=== PATIENT | female | born 1970 | race African-American/Black ===

== ENCOUNTER 2017-01-16 13:36 | Inpatient (IN) | payer OTHER ==
--- NOTE | ~2017-01-16 | CR141 ---
[facility] A Service of [facility] RADIOLOGY TEXT RESULTS PATIENT: CHANDA CRISTOBAL LOCATION: [place] : 70 UNIT #: [id number] AGE: [address]: Shey Danielson APRN SEX: F ORDER DR: [id number] [facility] [address] [facility]. [place], [place] [address] [id number] E MR#: [id number] Acc #: [id number] NAME: CHANDA CRISTOBAL. : 1970 SEX: F STUDY DATE/TIME: 01/16/2017 12:58 UNIT: [facility] ROOM: STUDY DESCRIPTION: CR Hand Min 3 Views Lt Attending Physician: Shey Danielson A.P.R.N. Ordering Physician: [facility] Primary Care Physician: Charity Miner M.D. MEDICAL IMAGING REPORT This report is preliminary unless electronic signature is present EXAM Left hand 3 views HISTORY Pain in left hand for several months but worse over last 2 weeks FINDINGS 3 views left hand demonstrates no fracture or dislocation. Minimal arthritic changes at the scaphotrapezial joint and first CMC joint. Bone mineralization appears normal. Soft tissues unremarkable. IMPRESSION No acute abnormalities. Minimal arthritic changes scaphotrapezial joint and first CMC joint. Dictated by... Sloane Gomez M.D. THIS IS AN ELECTRONICALLY VERIFIED REPORT Sloane Gomez M.D. at 01/17/2017 7:33 AM LUI/hector TD: 01/16/2017 13:55 JOB #: [id number] MEDICAL IMAGING REPORT Page 1 of 1 COPY
--- NOTE | ~2017-01-16 | CR281 ---
[facility] A Service of [facility] & [facility] RADIOLOGY TEXT RESULTS PATIENT: CHANDA CRISTOBAL LOCATION: [facility] : 70 UNIT #: [id number] AGE: [address]: Shey Danielson APRN SEX: F ORDER DR: [id number] [facility] [address] [facility]. [place], [place] [address] [id number] E MR#: [id number] Acc #: [id number] NAME: CHANDA CRISTOBAL. : 1970 SEX: F STUDY DATE/TIME: 01/16/2017 12:59 UNIT: [facility] ROOM: STUDY DESCRIPTION: CR Wrist Min 3 View Lt Attending Physician: Shey Danielson A.P.R.N. Ordering Physician: [facility] [employer] Primary Care Physician: Charity Miner M.D. MEDICAL IMAGING REPORT This report is preliminary unless electronic signature is present EXAM Left wrist 3 views HISTORY Wrist beginning several months ago, worse on the last 2 weeks FINDINGS 3 views of the left wrist demonstrates no fracture or dislocation. Questionable mild degenerative changes first CMC joint. Soft tissues unremarkable. IMPRESSION No acute findings Dictated by... Sloane Gomez M.D. THIS IS AN ELECTRONICALLY VERIFIED REPORT Sloane Gomez M.D. at 01/17/2017 7:33 AM Gabby TD: 01/16/2017 13:57 JOB #: [id number] MEDICAL IMAGING REPORT Page 1 of 1 COPY
--- NOTE | ~2017-01-16 | HP ---
Unit #: [id number] #: [id number] Patient: CHANDA CRISTOBAL [id number] [place], [place] [address] [id number] I MR#: [id number] NAME: CHANDA CRISTOBAL. ROOM: [facility] Age: 46 Sex: F Admission Date: 01/17/2017 : 1970 Attending Physician: Charity Miner M.D. Primary Care Physician: Charity Miner M.D. HISTORY AND PHYSICAL ADMISSION DIAGNOSES 1. Accelerated hypertension. 2. Morbid obesity. 3. Diabetes. 4. Leukocytosis. HISTORY OF PRESENT ILLNESS Ms. Chanda Cristobal is a 46-year-old female, patient of Dr. Miner who was a direct admit after seen at Dr. Miner's office for the routine followup for her pain medicine refill when she was found with the accelerated hypertension with systolic of greater than 220. She was admitted. She currently has no complaints. Her last blood pressure taken manually was 190/124, heart rate in the 80s, respirations 18, temperature 97.8. She has again no complaints. No chest pain, no headache, no dizziness, no nausea or vomiting, no diarrhea. Her kidney function looks fine with BUN 8 and creatinine 0.7. The only abnormality on her lab work is leukocytosis of 12,000. She has no syncope or presyncope episodes and no dizziness. REVIEW OF SYSTEMS Twelve-point review of systems on this patient is basically negative except as above. PAST MEDICAL HISTORY Significant for: 1. History of hypertension. 2. Diabetes type 2. She takes metformin. PAST SURGICAL HISTORY None. HOME MEDICATIONS I do not have these in front of me but this will require to be clarified with the pharmacy and patient will be restarted accordingly. ALLERGIES No known drug allergies. SOCIAL HISTORY Denies any tobacco, alcohol, or illicit drugs. FAMILY HISTORY Unremarkable. Unit #: [id number] #: [id number] Patient: CHANDA CRISTOBAL PHYSICAL EXAMINATION VITAL SIGNS: BP 190/124, heart rate 82, respirations 18, temperature 97.8. GENERAL: The patient is a 46-year-old female in no acute distress. HEENT: Head is atraumatic. Pupils equal, round, reactive to light and accommodation. Extraocular muscles are intact. Oropharynx is clear. NECK: Supple. No mass, no JVD, no bruits. LUNGS: Clear to auscultation bilaterally with diminished sounds in the bases. HEART: S1, S2. No murmurs. ABDOMEN: Obese, soft, nontender, nondistended. Bowel sounds are diminished. LOWER EXTREMITIES: Without any significant swelling. There are some venous stasis changes. NEUROLOGIC: Patient grossly intact to focal deficits. DIAGNOSTIC STUDIES LABORATORY: As above in HPI. IMAGING: As above in HPI. ASSESSMENT AND PLAN 1. For hypertension, will start her on IV hydralazine 20 mg q.6 h. p.r.n. for systolic blood pressure greater than 170. Also will start on clonidine 0.1 mg p.o. b.i.d. Will check 2D echo. Also, will go ahead and get a chest x-ray to rule out any mediastinal widening or aortic dissection. But, again, patient does not have any chest pain. Patient does not have any signs of end-organ damage. So at this point, it will be treated as an accelerated hypertension with medications as above. Will consider a cardiology evaluation. 2. Morbid obesity. Counseled on importance of losing some weight. 3. Diabetes. Will hold metformin. Check hemoglobin A1c. 4. Leukocytosis. Will check procalcitonin level, will check UA. 5. Chronic pain. Continue home medications. 6. GI and DVT prophylaxis start on Protonix, continue SCDs. Dictated by Myron Barone M.D. OC/stu TD: 01/17/2017 20:50 JOB #: [id number] Unit #: [id number] #: [id number] Patient: CHANDA CRISTOBAL HISTORY AND PHYSICAL Page 1 of 1 X Myron Barone MD HISTORY AND PHYSICAL
--- NOTE | ~2017-01-16 | CR282 ---
[facility] A Service of [facility] & [facility] RADIOLOGY TEXT RESULTS PATIENT: CHANDA CRISTOBAL LOCATION: [facility] : 70 UNIT #: [id number] AGE: [address]: Shey Danielson APRN SEX: F ORDER DR: [id number] [facility] [address] [facility]. [place], [place] [address] [id number] E MR#: [id number] Acc #: [id number] NAME: CHANDA CRISTOBAL. : 1970 SEX: F STUDY DATE/TIME: 01/16/2017 UNIT: [facility] ROOM: STUDY DESCRIPTION: CR Wrist Min 3 View Rt Attending Physician: Shey Danielson A.P.R.N. Ordering Physician: [facility] Primary Care Physician: Charity Miner M.D. MEDICAL IMAGING REPORT This report is preliminary unless electronic signature is present EXAM Right wrist 3 views 01/16/2017 12:37 hours FINDINGS 46-year-old woman complaining of wrist pain. Pain for a few months with significant increasing pain over the past 2 weeks. No acute injury. FINDINGS AP, lateral and oblique views demonstrate no fracture, dislocation or degenerative change. IMPRESSION Negative right wrist. Dictated by... Анна Buenrostro M.D. THIS IS AN ELECTRONICALLY VERIFIED REPORT Анна Buenrostro M.D. at 01/16/2017 2:32 PM M/hector TD: 01/16/2017 13:38 JOB #: [id number] MEDICAL IMAGING REPORT Page 1 of 1 COPY
--- NOTE | ~2017-01-16 | CR132 ---
[facility] A Service of [facility] & [facility] RADIOLOGY TEXT RESULTS PATIENT: CHANDA CRISTOBAL LOCATION: A 330-01 : 70 UNIT #: [id number] AGE: [address]: Charity Miner MD SEX: F ORDER DR: [id number] [facility] [address] [place], [place] [address] [id number] E MR#: [id number] Acc #: [id number] NAME: CHANDA CRISTOBAL. : 1970 SEX: F STUDY DATE/TIME: 01/16/2017 13:01 UNIT: [facility] ROOM: STUDY DESCRIPTION: CR Forearm 2 View Lt Attending Physician: Shey Danielson A.P.R.N. Ordering Physician: Ed Doctor [id number] [facility] Primary Care Physician: Charity Miner M.D. MEDICAL IMAGING REPORT This report is preliminary unless electronic signature is present EXAM Left forearm series, 01/16/2017 HISTORY Pain a few months ago but pain worse in last 2 weeks. No known trauma. FINDINGS AP and lateral radiographs of the left forearm are presented. No traumatic fracture or malalignment. The elbow and wrist joints appear intact in their visualized extent. No soft tissue defect or subcutaneous air. On the lateral view there is a 2.0-3.0 mm radiodensity projecting over the soft tissues of the left thenar eminence. It is not seen on the frontal view however this area is not included on the frontal view. It is unclear if this represents radiodense foreign body in the subcutaneous soft tissues or radiographic cassette artifact. Correlate with any penetrating trauma to this region. Correlate with exam. Dictated by... Calderon Aguilar M.D. THIS IS AN ELECTRONICALLY VERIFIED REPORT Calderon Aguilar M.D. at 01/17/2017 6:26 PM Karrie TD: 01/16/2017 14:13 JOB #: [id number] MEDICAL IMAGING REPORT Page 1 of 1 COPY
--- NOTE | ~2017-01-16 | BMI ---
[facility] Nutrition Therapy DATE: 01/18/17 Patient: CHANDA CRISTOBAL Physician: SHANIQUE Address: [address] [place] [address] Room/Bed: [address] [place] [address], Zip: [place] [address] Admit Date: 01/17/17 Date of : [birth year] Height: 5 3 Weight: 260 118 HIGH BMI NOTE: ANTHROPOMETRICS: HT: 63" WT: 118 KG BMI: 46.1 INTERVENTION: 1. HEART HEALTHY DIET RECOMMENDATIONS: 1. CONTINUE CURRENT DIET IN ORDER TO PROMOTE GRADUAL WEIGHT LOSS TOWARDS A HEALTHY BMI RANGE. Respectfully, YURY GIRARD RD, LD Food and Nutritional Services [facility] cc: client file
--- NOTE | ~2017-01-16 | DS ---
Unit #: [id number] #: [id number] Patient: CHANDA CRISTOBAL [id number] [address] [address] [id number] I MR#: [id number] NAME: CHANDA CRISTOBAL. ROOM: 330 Age: 46 Sex: F Admission Date: 01/17/2017 : 1970 Discharge Date: 01/19/2017 Attending Physician: Charity Miner M.D. Primary Care Physician: Charity Miner M.D. DISCHARGE SUMMARY FINAL DIAGNOSES 1. Accelerated hypertension. 2. Urinary tract infection. 3. Intractable back pain. 4. Diabetes mellitus type 2, uncontrolled with hemoglobin A1c above 10. 5. Leukocytosis, most likely secondary to urinary tract infection. DISCHARGE MEDICATIONS 1. Cipro 500 mg p.o. b.i.d. for five days. 2. Metformin 1000 mg p.o. b.i.d. 3. Norvasc 10 mg p.o. daily. 4. Lopressor 50 mg p.o. twice a day. 5. Hydrochlorothiazide 25 mg p.o. daily. 6. Clonidine 0.1 mg p.o. t.i.d. 7. Hydralazine 50 mg p.o. three times a day. 8. Oxycodone 7.5/325 one tablet p.o. q.8 p.r.n. dispense [address] Myron Barone. DISCHARGING PHYSICIAN Dr. Miner. DIAGNOSTIC STUDIES LABORATORY: Lab workup on discharge: Hemoglobin A1c 10.7. Urinalysis shows 3+ bacteria. BMP: Sodium 137, potassium 4, chloride 100, BUN 11, creatinine 0.7, calcium 9.6. Procalcitonin level less than 0.05. CBC shows WBC 11.1, hemoglobin 11.4, hematocrit 36.3, platelet count 431,000. On admission, patient's WBC count was 12.4. IMAGING: Chest x-ray, PA and lateral, was done which shows stable, mild cardiac enlargement. CARDIOVASCULAR: Echocardiogram was done during hospitalization which shows ejection fraction of 50% to 55%, moderate concentric left ventricular hypertrophy, no regional wall motion abnormalities noted, mildly dilated right ventricle. No significant valvular heart disease. Small pericardial effusion versus fat tissue. HOSPITAL COURSE Ms. Chanda Cristobal is a 46-year-old -[place] female with multiple medical problems, was admitted from office because of uncontrolled and accelerated hypertension. Patient's blood pressure on admission was 197/121 and 201/126. The patient was started on clonidine and hydralazine Unit #: [id number] #: [id number] Patient: LEVAR,CHANDA D and hydrochlorothiazide on top of her original medications which were Norvasc and metoprolol. The patient is doing much, much better at this time. Blood pressure has much improved, is under good control. Patient has been instructed that she needs to be compliant with the medication. It seems like there is some noncompliance issues going on. Patient's blood sugar is totally out of control. She refused to take insulin during hospitalization. I have explained it to her that her diabetes needs to get better. She is on metformin 1000 mg p.o. b.i.d. Diet instruction has been advised. The patient will follow up with us in the office in one week. At that time, will see if we need to start her on Victoza or insulin. There has to be some addition of another medication for her diabetic control. This was discussed with patient but will start as outpatient setting. Patient did have leukocytosis, most likely has urinary tract infection. First urine culture grew mixed growth. The second culture is still pending. The patient is being started on Cipro 500 mg b.i.d. for five days. CBC needs to be done in one week to make sure that her leukocytosis has resolved. PHYSICAL EXAMINATION VITAL SIGNS: Vital signs on discharge: Blood pressure 116/62, respiratory rate 20, pulse 74, temperature 98, oxygen saturation 100%. HEENT: Head is normocephalic. CHEST: Fair air entry. No additional sounds. CARDIOVASCULAR: S1, S2 positive. Regular rhythm. ABDOMEN: Soft. DISCHARGE INSTRUCTIONS 1. The patient is being discharged home in stable condition. 2. Follow up primary care physician in one week. 3. Check blood sugar at home twice a day and bring the log to us. 4. Complete the course of antibiotics. 5. CBC to be one in one week. 6. Prescription had been written (1) medication. Patient has been encouraged to bring medication with her when she comes for followup visit. Dictated by... Henri Betancourt TD: 01/20/2017 16:13 JOB #: [id number] Unit #: [id number] #: [id number] Patient: CHANDA CRISTOBAL DISCHARGE SUMMARY Page 1 of 1 X Charity Miner MD X DISCHARGE SUMMARY
--- NOTE | ~2017-01-16 | CR63 ---
[facility] A Service of [facility] / [facility] RADIOLOGY TEXT RESULTS PATIENT: CHANDA CRISTOBAL LOCATION: [facility] : 70 UNIT #: [id number] AGE: [address]: Charity Miner MD SEX: F ORDER DR: [id number] [facility] [address] [facility]. [place], [place] [address] [id number] I MR#: [id number] Acc #: [id number] NAME: CHANDA CRISTOBAL. : 1970 SEX: F STUDY DATE/TIME: 01/17/2017 21:21 UNIT: [address] ROOM: [facility] STUDY DESCRIPTION: CR Chest 2 View Attending Physician: Charity Miner M.D. Ordering Physician: Charity Miner M.D. Primary Care Physician: Charity Miner M.D. MEDICAL IMAGING REPORT This report is preliminary unless electronic signature is present EXAM PA and lateral chest. DATE 01/17/2017 at 21:21. HISTORY Accelerated hypertension. Patient complains of shortness of breath with activity and bilateral arm pain which began 2 months ago. COMPARISON AP portable chest, 03/15/2014. FINDINGS Stable cardiac enlargement. Central pulmonary vasculature appears within normal limits. No acute airspace disease is identified. No pleural effusion or pneumothorax is identified. IMPRESSION Stable mild cardiac enlargement. No acute cardiopulmonary findings. Dictated by... Bethany Dangelo M.D. THIS IS AN ELECTRONICALLY VERIFIED REPORT Bethany Dangelo M.D. at 01/18/2017 10:02 PM AMOR/natividad TD: 01/17/2017 22:46 JOB #: [id number] MEDICAL IMAGING REPORT [facility] A Service of [facility] / [facility] RADIOLOGY TEXT RESULTS PATIENT: CHANDA CRISTOBAL LOCATION: [facility] : 70 UNIT #: [id number] AGE: [address]: Charity Miner MD SEX: F ORDER DR: Page 1 of 1 COPY
--- NOTE | ~2017-01-16 | CR133 ---
[facility] A Service of [facility] RADIOLOGY TEXT RESULTS PATIENT: CHANDA CRISTOBAL LOCATION: [place] : 70 UNIT #: [id number] AGE: [address]: Shey Danielson APRN SEX: F ORDER DR: [id number] [facility] [address] [place], [place] [address] [id number] E MR#: [id number] Acc #: [id number] NAME: CHANDA CRISTOBAL. : 1970 SEX: F STUDY DATE/TIME: 01/16/2017 12:43 UNIT: [facility] ROOM: STUDY DESCRIPTION: CR Forearm 2 View Rt Attending Physician: Shey Danielson A.P.R.N. Ordering Physician: Murtaza Kendrick M.D. Primary Care Physician: Charity Miner M.D. MEDICAL IMAGING REPORT This report is preliminary unless electronic signature is present EXAM Right forearm 2 views 01/16/2017 1243 hours HISTORY Forearm pain for a few months increasing over the last 2 weeks. No reported injury. COMPARISON None. FINDINGS AP and lateral views of the radius and ulna demonstrate no fracture or dislocation. On the lateral view there is question raised of lucency in the ulna near the articulation with the humerus not seen on the AP view. This could represent artifact. Underlying lucent lesion cannot be excluded. Consider dedicated elbow film. IMPRESSION No fracture seen. On the lateral view there is questioned lucency in the proximal ulna near the articulation with the humerus. This could represent film artifact however underlying lucent or lytic lesion cannot be excluded. Consider a dedicated elbow film to further evaluate. STAT * RESULT Dictated by... Анна Buenrostro M.D. [facility] A Service of [facility] RADIOLOGY TEXT RESULTS PATIENT: CHANDA CRISTOBAL LOCATION: [place] : 70 UNIT #: [id number] AGE: [address]: Shey Danielson APRN SEX: F ORDER DR: THIS IS AN ELECTRONICALLY VERIFIED REPORT Анна Buenrostro M.D. at 01/16/2017 2:29 PM SANDRA/javad TD: 01/16/2017 13:40 JOB #: [id number] MEDICAL IMAGING REPORT Page 1 of 1 COPY
--- NOTE | ~2017-01-16 | EKG ---
PATIENT: CHANDA CRISTOBAL UNIT #: [id number] Ventricular Rate: 71 BPM Atrial Rate: 71 BPM P-R Interval: 166 ms QRS Duration: 108 ms Q-T Interval: 392 ms QTC Calculation(Bezet): 425 ms P [place]: 56 degrees Calculated R [place]: 12 degrees Calculated T [place]: -16 degrees Diagnosis Line: Normal sinus rhythm Diagnosis Line: Incomplete right bundle branch block Diagnosis Line: T wave abnormality, consider inferior ischemia T Diagnosis Line: wave abnormality, consider lateral ischemia Diagnosis Line: Abnormal ECG Diagnosis Line: Diagnosis Line: Confirmed by RAFI SWENSON MD ([id number]) on 01/21/2017 Diagnosis Line: 3:51:02 PM INTERPRETING MD: LEELA PALOMO
--- NOTE | ~2017-01-16 | CR142 ---
[facility] A Service of [facility] & [facility] RADIOLOGY TEXT RESULTS PATIENT: CHANDA CRISTOBAL LOCATION: [facility] : 70 UNIT #: [id number] AGE: [address]: Shey Danielson APRN SEX: F ORDER DR: [id number] [facility] [address] [facility]. [place], [place] [address] [id number] E MR#: [id number] Acc #: [id number] NAME: CHANDA CRISTOBAL. : 1970 SEX: F STUDY DATE/TIME: 01/16/2017 12:41 UNIT: [facility] ROOM: STUDY DESCRIPTION: CR Hand Min 3 Views Rt Attending Physician: Shey Danielson A.P.R.N. Ordering Physician: Ed Segunod Kendrick M.D. Primary Care Physician: Charity Miner M.D. MEDICAL IMAGING REPORT This report is preliminary unless electronic signature is present EXAM Right hand, 3 views, 01/16/2017, 1241 hours. CLINICAL HISTORY Pain for a few months increasing over last 2 weeks. No reported injury. COMPARISON None FINDINGS AP, lateral, and oblique views demonstrate normal bone density. There is dorsal soft tissue prominence. There is no fracture, dislocation, or erosive change. IMPRESSION Dorsal soft tissue prominence. There is no fracture, dislocation, or erosive change. No foreign body. Dictated by... Анна Buenrostro M.D. THIS IS AN ELECTRONICALLY VERIFIED REPORT Анна Buenrostro M.D. at 01/16/2017 2:32 PM SANDRA/tony TD: 01/16/2017 13:43 JOB #: [id number] MEDICAL IMAGING REPORT Page 1 of 1 COPY
[~2017-01-16 13:36] MED LIST: ADVAIR 250-501 EAC1 IH; ALBUTEROL 0.5ML INH; ALBUTEROL20 ml INH; ALDACTAZIDE 50/1 TAB PO; AMOXICILLIN500 M1 PO; BACTRIM DS TABL1 TA1 PO; CATAPRES0.1 MG PO; CLONIDINE HCL0.1 MG PO; CLONIDINE PO; DUONEBS INH; FLEXERIL10 MG PO; GLUCOPHAGE500 M1 PO; HCTZ PO; IBUPROFEN PO; IBUPROFEN800 MG PO; IRON1 TAB PO; KEFLEX500 MG PO; KETOPROFEN PO; LEVAQUIN PO; LOPRESSOR PO; LORTAB 10-5001 EACH PO; LORTAB 2.5/5001 TAB PO; LORTAB 5/500 TA1 TA1 PO; LORTAB 5/500 TA1 TA2 PO; METOPROLOL SUCC50 MG PO; METOPROLOL TAR25 MG DOB; METOPROLOL TAR25 MG PO; MOTRIN600 M1 PO; NAPROXEN SODIU500 MG PO; NORVASC PO; ORUDIS75 M1 DOB; PEN-VEE K PO; PERCOCET PO; PHENERGAN25 M1 PO; PREDNISONE PO; PROVENTIL17 GM INH; SEPTRA DS; SEPTRA DS PO; SPIRONOLAC1 TAB 25/2 DOB; VICODIN PO; VOLTAREN75 MG PO; ZESTRIL40 MG PO
[2017-01-17 18:05] LABS: HEMATOCRIT 37.9 % (35.0-45.0); MEAN CORPUSCULAR HEMOGLOBIN 25.7 PG (28-34); MEAN CORPUSCULAR HGB CONC 31.7 g/dL (30-36); MEAN PLATELET VOLUME 8.3 FL (6.5-11.5); RED BLOOD COUNT 4.68 X10e (3.90-5.30); RED CELL DISTRIBUTION WIDTH 16.9 % (11.0-15.5); WHITE BLOOD COUNT 12.4 X10e3 (4.0-10.5)
[2017-01-17 19:05] LABS: ALBUMIN SERUM 3.9 g/dL (3.5-5.0); BILIRUBIN,TOTAL 0.5 mg/dL (0.2-2.0); BUN/CREATININE RATIO 11.42; CALCIUM SERUM 9.5 mg/dL (8.4-10.2); CREATININE SERUM 0.7 mg/dL (0.6-1.4); GLOM FILT RATE Estimated 120.4 mL/min (>60); POTASSIUM 3.8 mmol/L (3.5-5.1); PROTEIN TOTAL SERUM 7.5 g/dL (6.0-8.3)
[2017-01-17 19:24] LABS: %MB 0.7 % (0.0-4.0); MB 0.8 ng/ml
[2017-01-18] MEDS ORDERED: LOPRESSOR PO (03:08)
[2017-01-18] MEDS ORDERED: NORVASC PO (03:09)
[2017-01-18] MEDS ORDERED: METFORMIN HCL500 M1 PO (03:10)
[2017-01-18 13:17] LABS: HEMATOCRIT 36.3 % (35.0-45.0); HEMOGLOBIN 11.4 gm/dL (12.0-16.0); MEAN CELL VOLUME 81.2 FL (83-96); MEAN CORPUSCULAR HEMOGLOBIN 25.5 PG (28-34); MEAN CORPUSCULAR HGB CONC 31.4 g/dL (30-36); MEAN PLATELET VOLUME 8.5 FL (6.5-11.5); RED BLOOD COUNT 4.47 X10e (3.90-5.30); RED CELL DISTRIBUTION WIDTH 16.9 % (11.0-15.5); WHITE BLOOD COUNT 11.1 X10e3 (4.0-10.5)
[2017-01-18 14:05] LABS: BLOOD UREA NITROGEN 11 mg/dL (9-23); BUN/CREATININE RATIO 15.71; CALCIUM SERUM 9.6 mg/dL (8.4-10.2); CARBON DIOXIDE 26 mmol/L (22-31); CHLORIDE 100 mmol/L (100-111); CREATININE SERUM 0.7 mg/dL (0.6-1.4); GLOM FILT RATE Estimated 120.4 mL/min (>60); GLUCOSE FASTING 257 mg/dL (70-110); SODIUM 137 mmol/L (135-145)
[2017-01-18 14:20] LABS: PROCALCITONIN <0.05 NG/ML
[2017-01-18 23:35] LABS: URINE SOURCE CLEAN CATCH
[2017-01-18 23:42] LABS: URINE APPEARANCE CLOUDY; URINE BILIRUBIN NEG (NEG); URINE BLOOD NEG (NEG); URINE COLOR YELLOW; URINE GLUCOSE 500 MG/DL (NEG); URINE KETONE TRACE (NEG); URINE LEUKOCYTE ESTERASE 3+ (NEG); URINE NITRATE NEG (NEG); URINE PROTEIN NEG (NEG); URINE SPECIFIC GRAVITY 1.025 (1.003-1.035); URINE UROBILINOGEN 0.2 MG/DL (NEG)
[2017-01-18 23:48] LABS: URBCS1 AUWI 0-2 /[HPF] (0-2); URINE BACTERIA AUWI 3+ (NEGATIVE); URINE SQUAMOUS EPITHELIAL CELL MOD /[HPF]; UWBCS1 AUWI 100-200 (0-5)
[2017-01-19] LABS: U HYALINE CASTS AUWI 0-2 /[LPF]
[2017-01-19] MEDS ORDERED: HYDROCHLOROTHIA25 MG PO (16:26)
[2017-01-19] MEDS ORDERED: HYDRALAZINE HCL50 MG PO (16:27)
[2017-01-19] MEDS ORDERED: CATAPRES0.1 MG PO (16:27)
[2017-01-19] MEDS ORDERED: OXYCODONE-ACET1 EAC1 PO (16:28)
[2017-01-19] MEDS ORDERED: CIPRO PO (16:29)
[2017-01-19] MEDS ORDERED: OXYCODON-ACETA1 EAC1 PO (16:30)
== END 2017-01-19 18:51 | disposition home or self-care (01) | DRG 305 ==
LOC: CFTX 13:36 → C3A PCU 01-17 15:34
PROVIDERS: Physician Assistant Medical
PROC: B24BYZZ Ultrasonography of Heart with Aorta using Other Contrast (ICD-10-PCS; principal; 2017-01-18)
DX: I10 Essential (primary) hypertension (principal); E11.65 Type 2 diabetes mellitus with hyperglycemia; N39.0 Urinary tract infection, site not specified; Z68.42 Body mass index [BMI] 45.0-49.9, adult; M54.9 Dorsalgia, unspecified; D72.829 Elevated white blood cell count, unspecified; Z79.84 Long term (current) use of oral hypoglycemic drugs; E66.01 Morbid (severe) obesity due to excess calories; G89.29 Other chronic pain
CPT/HCPCS: 71020; 73090; 73110; 73130; 80048; 80053; 81003; 82308; 82550; 82553; 82947; 83036; 84484; 85027; 93005; 93306; 99284; J0360

== ENCOUNTER 2017-01-25 11:04 | Observation (INO) | payer OTHER ==
--- NOTE | ~2017-01-25 | A ---
[facility] Nutrition Therapy DATE: 01/26/17 Patient: CHANDA CRISTOBAL Physician: DENNIS Address: [facility] Room/Bed: [address] [place] [address], Zip: [place] [address] Admit Date: 01/25/17 Date of : [birth year] Height: 5 3 Weight: 260 118.1 NUTRITIONAL ASSESSMENT: REASON: 2 pts RE: unintentional 10# wt loss + High BMI documentation 46 yo female admitted for CP PMH: HTN, T2DM Anthropometrics: Ht: 5'3" Wt: 118.2 kg (260#) BMI: 46.2 Labs: Gluc 305, POC 257, HgbA1C 10.5 Meds: Novolog, Lipitor I/O & Bowel function: 960/600, last BM 01/24 Skin Integrity: Scar (L foot), discoloration/dryness (BLE) Edema: BLE 1+ Assessment: Chart reviewed, events noted. Pt reports 10# weight loss within the past month. Pt reports watching what she eats recently. RD internet sales associate provided written and verbal diabetic diet education. Pt reports needing diet education and wanting to make diet changes. Pt reports consuming fried foods and sodas. RD internet sales associate encouraged alternative cooking methods, addition of vegetables, fruits and water into diet. RD internet sales associate discussed carbohydrate foods and portion sizes. RD internet sales associate provided verbal goals after d/c. Pt verbalized understanding, expect moderate compliance after d/c. Pt had no diet questions at this time. See recommendations below. Dx: Food and nutrition related knowledge defecit RT no prior diabetic diet education AEB pt report, HgbA1C 10.5, Gluc 305. -Obesity class III r/t lifestyle, diet aeb BMI of 46.2. Intervention: 1. Diet education 2. Consistent carb diet Monitoring, Evaluation and Goals: 1. PO intake; consume >75% of meals 2. Labs; WNL: gluc, HgbA1C 3. Weight; promote gradual weight loss [facility] Nutrition Therapy DATE: 01/26/17 Patient: CHANDA CRISTOBAL Physician: DENNIS Address: [address] [facility] Room/Bed: [address] [place] [address], Zip: [place] [address] Admit Date: 01/25/17 Date of : [birth year] Height: 5 3 Weight: 260 118.1 Recommendations: 1. Please add healthy heart diet restriction to promote gradual weight loss towards healthy BMI. 2. Encourage compliance to consistent carb diet. 3. Consult RD if further diet education is needed/requested. Pt is at a mild nutritional risk. RD will f/u per protocol. Respectfully, Vibha Lofton, [employer] Tameka Cotto MS, RD, LD Food and Nutritional Services [facility] cc: client file
--- NOTE | ~2017-01-25 | DS ---
Unit #: [id number] #: [id number] Patient: CHANDA CRISTOBAL [id number] [address] [place], [place] [address] [id number] I MR#: [id number] NAME: CHANDA CRISTOBAL. ROOM: 55 Age: 46 Sex: F Admission Date: 01/25/2017 : 1970 Discharge Date: 01/26/2017 Attending Physician: Isidro Gandhi M.D. Primary Care Physician: Charity Miner M.D. DISCHARGE SUMMARY SHORT STAY SUMMARY CHIEF COMPLAINT Chest pain. HISTORY OF PRESENT ILLNESS The patient is a 46-year-old obese -[place]er female, who is known to our group through previous hospital admissions. She had a 2D echocardiogram done on January 18, 2017, which showed an EF of 50% to 55% with a mildly dilated RV. Additional cardiac past medical history includes hypertension. Additional past medical history includes asthma, COPD, anxiety, diabetes, and iron-deficiency anemia. Please note, patient was recently hospitalized for hypertension and urinary tract infection. The patient states that she has been having lots of family stressors at home. She developed mid sternal chest pain that was not associated with any shortness of breath or diaphoresis. The pain did not radiate. She states that she has never felt pain like that before. In the emergency department, the patient's troponin was less than 0.03 and her EKG was unremarkable. PAST MEDICAL HISTORY 1. A 2D echocardiogram from January 18, 2017, shows an EF of 50% to 55% with mildly dilated right ventricle. 2. Hypertension. 3. Asthma. 4. COPD. 5. Anxiety. 6. Diabetes type 2. 7. Iron-deficiency anemia. 8. Obesity with a BMI greater than 30. PAST SURGICAL HISTORY Right knee arthroscopy. ALLERGIES No known allergies. HOME MEDICATIONS 1. Lopressor 50 mg p.o. b.i.d. 2. Norvasc 5 mg p.o. daily. 3. Metformin 1000 mg p.o. b.i.d. 4. Hydrochlorothiazide 25 mg p.o. daily. Unit #: [id number] #: [id number] Patient: CHANDA CRISTOBAL 5. Catapres 0.1 mg p.o. q.8 hours p.r.n. 6. Hydralazine 50 mg p.o. three times daily. 7. Hydrocodone/acetaminophen 7.5/325 mg one tab p.o. three times daily p.r.n. pain. SOCIAL HISTORY Patient smoked from age [age], approximately one pack per day but quit approximately four years ago. She denies any use of alcohol or drugs. FAMILY HISTORY Patient endorses that her mother with cancer in her 60s. Her father had coronary artery disease and had a coronary artery bypass grafting in his 60s. Her brother and sisters have no known heart problems. REVIEW OF SYSTEMS A 10-point review of systems was attempted but is considered otherwise negative unless indicated in the HPI. PHYSICAL EXAMINATION GENERAL: Patient is a 46-year-old -[place] female who was awake, alert, in no acute distress. VITAL SIGNS: Temperature 97.5, heart rate 78, respirations 16, blood pressure 139/83. She is oxygenating 94%. HEENT: Head is atraumatic, normocephalic. Pupils equal, round, reactive. Extraocular movements are intact. No drainage from ears or nares. NECK: Supple. Trachea is midline. No lymphadenopathy or thyromegaly is appreciated. Normal carotid upstrokes. Negative JVD. LUNGS: Clear to auscultation bilaterally. No wheezes, rales, or rhonchi. CARDIOVASCULAR: S1, S2. Regular rate and rhythm. No murmurs, rubs, or gallops appreciated. ABDOMEN: Soft, nontender, nondistended. Bowel sounds are positive in all four quadrants. Hepatosplenomegaly is appreciated. SKIN: Appears to be warm, dry, intact. EXTREMITIES: No clubbing or cyanosis. Patient has +1 bilateral lower extremity edema. NEUROLOGIC: The patient is alert and oriented x3. She is pleasant, conversant. No focal deficits. DIAGNOSTIC STUDIES LABORATORY: Glucose 181, BUN 12, creatinine 0.7, sodium 135, potassium 4.1, chloride 105, CO2 of 20. BNP 18. TSH 2.17. White blood cells 11.4, hemoglobin 11.4, hematocrit 37, platelets 384,000. D-dimer 1590. Troponin less than 0.03. IMAGING: CT of the chest was limited due to patient's large size and by some respiratory motion and opacification of the pulmonary arteries is not optimal but there are no central pulmonary emboli visible. CARDIOVASCULAR: EKG shows sinus tachycardia. ASSESSMENT 1. Atypical chest pain. 2. Hypertension. 3. Asthma/chronic obstructive pulmonary disease. 4. Anxiety. 5. Diabetes type 2. 6. Iron-deficiency anemia. 7. Ejection fraction of 50% to 55% with mildly dilated right ventricle Unit #: [id number] #: [id number] Patient: CHANDA CRISTOBAL per echocardiogram from January 18, 2017. 8. Reformed tobaccoism. PLAN I have discussed this case with Dr. Isidro Gandhi and patient has refused to do a Lexiscan Cardiolite stress test. She has also refused to do a treadmill stress test. She states she does not want to be stuck anymore and that she wants to eat. Again, patient's EKG and troponin were unremarkable. Patient's blood pressure medicines have been changed. Dr. Gandhi has deemed that this patient is stable to go home and therefore will be discharged. DISCHARGE FOLLOWUP INSTRUCTIONS 1. Patient will be discharged home. 2. Patient will follow up with primary care (1) . 3. Patient to follow up with Dr. Gandhi in two weeks. 4. Healthy heart diabetic diet. 5. Activity as tolerated. 6. Patient to seek medical attention or return to the ER if signs or symptoms worsen. DISCHARGE MEDICATIONS 1. Metformin 1000 mg p.o. b.i.d. 2. Norvasc 10 mg p.o. daily. 3. Lopressor 50 mg p.o. b.i.d. 4. Hydrochlorothiazide 25 mg p.o. daily. 5. Lipitor 10 mg p.o. daily. 6. Hydralazine 50 mg p.o. t.i.d. 7. Lisinopril 5 mg p.o. daily. 8. Oxycodone/acetaminophen 7.5/325 one tab p.o. three times daily p.r.n. pain. Dictated by... Mey Johns A.P.R.N. for Henri Ramsay TD: 01/26/2017 13:14 JOB #: [id number] DISCHARGE SUMMARY Page 1 of 1 X Mey Johns APRN DISCHARGE SUMMARY
--- NOTE | ~2017-01-25 | EKG ---
PATIENT: CHANDA CRISTOBAL UNIT #: [id number] Ventricular Rate: 111 BPM Atrial Rate: 111 BPM P-R Interval: 158 ms QRS Duration: 90 ms Q-T Interval: 352 ms QTC Calculation(Bezet): 478 ms P [place]: 39 degrees Calculated R [place]: 21 degrees Calculated T [place]: 8 degrees Diagnosis Line: Sinus tachycardia Diagnosis Line: Otherwise normal ECG Diagnosis Line: When compared with ECG of 17-JAN-2017 17:57, Diagnosis Line: Vent. rate has increased BY 40 BPM Diagnosis Line: Incomplete right bundle branch block is no longer Diagnosis Line: Present Diagnosis Line: Confirmed by RAFI SWENSON MD ([id number]) on 01/26/2017 Diagnosis Line: 8:01:26 PM INTERPRETING MD: LEELA PALOMO
--- NOTE | ~2017-01-25 | CT16 ---
[facility] A Service of [facility] & [facility] RADIOLOGY TEXT RESULTS PATIENT: CHANDA CRISTOBAL LOCATION: [facility] 55- : [birth year] UNIT #: [id number] AGE: [address]: Isidro Gandhi MD SEX: F ORDER DR: [id number] [facility] [address] [facility]. [place], [place] [address] [id number] I MR#: [id number] Acc #: [id number] NAME: CHANDA CRISTOBAL. : 1970 SEX: F STUDY DATE/TIME: 01/25/2017 15:53 UNIT: [facility] ROOM: [facility] STUDY DESCRIPTION: CT Angio Chest for PE Attending Physician: Isidro Gandhi M.D. Ordering Physician: Marleni Mckeon M.D. Primary Care Physician: Charity Miner M.D. MEDICAL IMAGING REPORT This report is preliminary unless electronic signature is present EXAM CT of the chest with pulmonary embolus protocol HISTORY Chest pain since last night that is worse today. TECHNIQUE The patient was given 80 cc of Isovue-370 and spiral imaging was performed through the chest with IV contrast. 3-D reconstructions were generated of the pulmonary arteries. This CT exam was performed with one or more of the following radiation dose reduction techniques: automatic exposure control, adjustment of mA and/or kV according to patient size, and iterative reconstruction. FINDINGS The opacification of the pulmonary arteries is not optimal. There are no large central pulmonary emboli. There is also motion effecting the study. The aorta is normal in size and there is no dissection. Thyroid gland is slightly enlarged but symmetric. There is no mediastinal or hilar adenopathy. The visualized portions of the upper abdomen are normal. The lungs are clear. The bones are unremarkable. IMPRESSION 1. Study is limited by the patient's large size and by some respiratory motion and the opacification of the pulmonary arteries is not optimal but there are no central pulmonary emboli visible. Small distal emboli would be difficult to exclude. 2. The lungs are clear, except for some stable left base pleural thickening, unchanged from 2013. 3. Otherwise, the study is normal. STS. [facility] A Service of [facility] & [facility] RADIOLOGY TEXT RESULTS PATIENT: CHANDA CRISTOBAL LOCATION: [place] [address] : [birth year] UNIT #: [id number] AGE: [address]: Isidro Gandhi MD SEX: F ORDER DR: Dictated by... Sy Rubin M.D. THIS IS AN ELECTRONICALLY VERIFIED REPORT Sy Rubin M.D. at 01/26/2017 7:04 AM FEL/pcl TD: 01/25/2017 23:09 JOB #: [id number] MEDICAL IMAGING REPORT Page 1 of 1 COPY
--- NOTE | ~2017-01-25 | CR72 ---
[facility] A Service of [facility] & [facility] RADIOLOGY TEXT RESULTS PATIENT: CHANDA CRISTOBAL LOCATION: [place] [address] : [birth year] UNIT #: [id number] AGE: [address]: Isidro Gandhi MD SEX: F ORDER DR: [id number] [facility] [address] [facility]. [place], [place] [address] [id number] MR#: [id number] Acc #: [id number] NAME: CHANDA CRISTOBAL. : 1970 SEX: F STUDY DATE/TIME: 01/25/2017 12:19 UNIT: PATRICE ROOM: STUDY DESCRIPTION: CR Chest Single View Portable Attending Physician: Marleni Mckeon M.D. Ordering Physician: [facility] Primary Care Physician: Charity Miner M.D. MEDICAL IMAGING REPORT This report is preliminary unless electronic signature is present EXAM Portable chest 1 view, 01/25/2017 COMPARISON STUDIES 01/17/2017. HISTORY Chest pain for 1 day. FINDINGS A single AP portable view of the chest shows both lungs to be clear. The heart is normal in size. The mediastinal contour is normal. No significant bone abnormalities are seen. IMPRESSION Normal portable chest. Dictated by... Mert Alford M.D. THIS IS AN ELECTRONICALLY VERIFIED REPORT Mert Alford M.D. at 01/26/2017 3:54 PM TEV/pcl TD: 01/25/2017 16:16 JOB #: [id number] MEDICAL IMAGING REPORT Page 1 of 1 COPY
--- NOTE | ~2017-01-25 | TH ---
Unit #: [id number] #: [id number] Patient: CHANDA CRISTOBAL [id number] [address] [place], [place] [address] [id number] MR#: [id number] NAME: CHANDA CRISTOBAL. : 1970 SEX: F STUDY DATE/TIME: UNIT: C5B ROOM: 552 STUDY DESCRIPTION: Nuclear Study Attending Physician: Isidro Gandhi M.D. Primary Care Physician: Charity Miner M.D. CARDIOLOGY REPORT EXAM Nuclear Study SUMMARY The patient was given Lexiscan 10.32 mCi at rest, with images obtained. The patient's IV fell out, and patient refused further IV placement. I went to the patient's room afterwards, and offered a regular stress test. The patient refused a regular stress test because she stated she wanted to eat. I stated we could not do the stress test for six hours after she ate, and that her blood sugar was 300, with a hemoglobin A1c of 10.4. I explained this in detail to her in terms of her safety. She still insisted on eating, rather than doing a stress test. Therefore, patient would not comply with medical recommendations, and because the troponins were normal, as well as the ECG being nonischemic, the patient was discharged. Perfusion images showed apical thinning, average uptake throughout, with normal perfusion with the exception of the diaphragmatic artifact. IMPRESSION 1. Normal resting stress nuclear images. 2. Stress testing not performed. Dictated by... Isidro Gandhi M.D. ERNESTINE/jigna TD: 01/28/2017 14:14 JOB #: [id number] Unit #: [id number] #: [id number] Patient: CHANDA CRISTOBAL CARDIOLOGY REPORT Page 1 of 1 X Isidro Gandhi MD CARDIOLOGY REPORT
[~2017-01-25 11:04] MED LIST changes: +CIPRO PO; +HYDRALAZINE HCL50 MG PO; +HYDROCHLOROTHIA25 MG PO; +METFORMIN HCL500 M1 PO; +OXYCODON-ACETA1 EAC1 PO; +OXYCODONE-ACET1 EAC1 PO
[2017-01-25 12:40] LABS: BASOPHIL# 0.1 X10e3 (0-0.3); EOSINOPHIL# 0.4 X10e3 (0-0.7); EOSINOPHIL% 3.1 % (0.0-7.0); HEMOGLOBIN 11.4 gm/dL (12.0-16.0); LYMPHOCYTE% 26.1 % (17.0-45.0); MEAN CELL VOLUME 82.3 FL (83-96); MEAN CORPUSCULAR HEMOGLOBIN 25.3 PG (28-34); MEAN CORPUSCULAR HGB CONC 30.7 g/dL (30-36); MEAN PLATELET VOLUME 8.7 FL (6.5-11.5); MONOCYTE# 0.7 X10e3 (0-1.0); MONOCYTE% 6.3 % (3.0-12.0); NEUTROPHIL# 7.2 X10e3 (1.5-7.1); NEUTROPHIL% 63.5 % (40-75); PLATELET COUNT 384 X10e3 (140-420); RED CELL DISTRIBUTION WIDTH 16.5 % (11.0-15.5); WHITE BLOOD COUNT 11.4 X10e3 (4.0-10.5)
[2017-01-25 12:42] LABS: DIFF IND NO
[2017-01-25 12:52] LABS: INR 0.9; PARTIAL THROMBOPLASTIN TIME 25.8 SECONDS (23.5-31.3); PROTHROMBIN TIME (PATIENT) 9.7 SECONDS (9.6-11.5)
[2017-01-25 13:15] LABS: ALBUMIN SERUM 3.6 g/dL (3.5-5.0); BILIRUBIN, DIRECT 0.1 mg/dL (0.0-0.2); BILIRUBIN,TOTAL 0.1 mg/dL (0.2-2.0); BUN/CREATININE RATIO 17.5; CALCIUM SERUM 8.9 mg/dL (8.4-10.2); CREATININE SERUM 0.8 mg/dL (0.6-1.4); GLOM FILT RATE Estimated 102.6 mL/min (>60); POTASSIUM 3.7 mmol/L (3.5-5.1); PROTEIN TOTAL SERUM 7.1 g/dL (6.0-8.3)
[2017-01-25 13:27] LABS: POC - CKMB <1.0 ng/mL (0.0-7.9); POC - TROPONIN <0.05 ng/mL (<=0.05)
[2017-01-25 13:58] LABS: POC - CKMB <1.0 ng/mL (0.0-7.9); POC - TROPONIN <0.05 ng/mL (<=0.05)
[2017-01-25 18:59] LABS: URINE SOURCE CLEAN CATCH
[2017-01-25 19:06] LABS: URINE APPEARANCE CLOUDY; URINE BILIRUBIN NEG (NEG); URINE BLOOD NEG (NEG); URINE COLOR YELLOW; URINE GLUCOSE 1000 MG/DL (NORM); URINE KETONE NEG (NEG); URINE LEUKOCYTE ESTERASE 2+ (NEG); URINE NITRATE NEG (NEG); URINE PROTEIN 1+ (NEG); URINE UROBILINOGEN NORM (NORM)
[2017-01-25 19:13] LABS: CULTURE INDICATED? YES; URINE SQUAMOUS EPITHELIAL CELL FEW /[HPF]
[2017-01-26 06:15] LABS: URINE SOURCE CLEAN CATCH
[2017-01-26 06:24] LABS: URINE APPEARANCE CLEAR; URINE BILIRUBIN NEG (NEG); URINE BLOOD NEG (NEG); URINE COLOR YELLOW; URINE GLUCOSE 500 MG/DL (NEG); URINE KETONE NEG (NEG); URINE LEUKOCYTE ESTERASE NEG (NEG); URINE NITRATE NEG (NEG); URINE PROTEIN NEG (NEG); URINE SPECIFIC GRAVITY 1.049 (1.003-1.035)
[2017-01-26 08:48] LABS: BUN/CREATININE RATIO 17.14; CALCIUM SERUM 8.6 mg/dL (8.4-10.2); CREATININE SERUM 0.7 mg/dL (0.6-1.4); GLOM FILT RATE Estimated 120.4 mL/min (>60); MAGNESIUM 1.4 mg/dL (1.6-3.0); POTASSIUM 4.1 mmol/L (3.5-5.1)
[2017-01-26] MEDS ORDERED: PRINIVIL5 MG PO (12:45)
[2017-01-26] MEDS ORDERED: LIPITOR PO (12:46)
== END 2017-01-26 15:20 | disposition home or self-care (01) ==
LOC: CED 11:04 → C5B 18:12 → CED 18:32 → C5B 01-26 15:20
PROVIDERS: Emergency Medicine
DX: R07.89 Other chest pain (principal); I10 Essential (primary) hypertension; J44.9 Chronic obstructive pulmonary disease, unspecified; F41.9 Anxiety disorder, unspecified; E11.9 Type 2 diabetes mellitus without complications; Z79.84 Long term (current) use of oral hypoglycemic drugs; D50.9 Iron deficiency anemia, unspecified; Z87.891 Personal history of nicotine dependence; I51.7 Cardiomegaly
CPT/HCPCS: 36415; 71010; 71275; 78451; 80048; 80076; 81003; 82553; 82947; 83036; 83735; 83880; 84443; 84484; 84703; 85025; 85379; 85610; 85730; 87086; 93005; 96374; 99285; A9500; G0378; J1815; J2060; J2785; Q9967

== ENCOUNTER 2017-04-07 19:25 | Inpatient (IN) | payer OTHER ==
[~2017-04-07] VITALS: Ht 160 cm; Wt 117.4 kg
--- NOTE | ~2017-04-07 | EKG ---
PATIENT: CHANDA CRISTOBAL UNIT #: [id number] Ventricular Rate: 81 BPM Atrial Rate: 81 BPM P-R Interval: 160 ms QRS Duration: 98 ms Q-T Interval: 400 ms QTC Calculation(Bezet): 464 ms P [place]: 47 degrees Calculated R [place]: 25 degrees Calculated T [place]: 27 degrees Diagnosis Line: Normal sinus rhythm Diagnosis Line: Nonspecific T wave abnormality Diagnosis Line: Prolonged QT Diagnosis Line: Abnormal ECG Diagnosis Line: When compared with ECG of 08-APR-2017 11:39, Diagnosis Line: (unconfirmed) Diagnosis Line: No significant change was found Diagnosis Line: Confirmed by DEE MANZANO MD ([id number]) on Diagnosis Line: 04/09/2017 8:25:21 PM INTERPRETING MD: BUZZ
--- NOTE | ~2017-04-07 | BMI ---
[facility] Nutrition Therapy DATE: 04/09/17 Patient: CHANDA CRISTOBAL Physician: PAVEL Address: [address] [place] [address] Room/Bed: [address] [place] [address], Zip: [place] [address] Admit Date: 04/07/17 Date of : [birth year] Height: 5 3 Weight: 258 117.4 HIGH BMI NOTE: DX: 47 Y.O. FEMALE ADMITTED FOR ANTHROPOMETRICS: 5'3", WT: 258# (117 KG), BMI: 45.7 DIET: NPO RECOMMENDATIONS: 1. ONCE MEDICALLY FEASIBLE, ADVANCE DIET INDICATED TO CC+HH TO PROMOTE GRADUAL WEIGHT LOSS TOWARDS HEALTHY BMI (19.0-25.0) OR +/-10%IBW RD WILL F/U PER PROTOCOL Respectfully, GEORGETTE CURTIS MS, RD, LD Food and Nutritional Services [facility] cc: client file
--- NOTE | ~2017-04-07 | CO ---
Unit #: [id number] #: [id number] Patient: CHANDA CRISTOBAL [id number] [address] [place], [place] [address] [id number] I MR#: [id number] NAME: CHANDA CRISTOBAL. ROOM: 565 Age: 47 Sex: F Admission Date: 04/07/2017 : 1970 Attending Physician: Myron Barone M.D. Primary Care Physician: Charity Miner M.D. 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 CHIEF COMPLAINT Chest discomfort and knee pain. HISTORY OF PRESENT ILLNESS Ms. Cristobal is known to our service. She was here in January where she complained of chest discomfort. At that time, she refused stress testing because she was hungry. She has a history of echocardiogram done in 2013 with an EF of 55%, normal left ventricular wall motion in last admission in January. On 01/18/2017, she had a repeat echocardiogram which showed EF 50% to 55% with a mildly dilated right ventricle. She also has a past medical history, which includes hypertension, diabetes mellitus type 2, asthma, COPD, anxiety, and iron deficiency anemia. She presents this time stating that she is having chest discomfort mainly at rest, the patient is fairly immobile, she is morbidly obese and has bad knees, so she does not get around much. She states the chest pain is lasting less than 5 minutes, it is central sternal, described as an achy feeling, nonradiating. She does have some nausea, some lightheadedness, and some dizziness with it. It goes away spontaneously without any intervention. Cardiovascular risk factors; positive diabetes mellitus, positive hypertension, history of tobacco abuse, negative for known dyslipidemia, negative for premature coronary artery disease in first degree relatives, obesity. PAST MEDICAL HISTORY Diabetes mellitus, hypertension, EF 50% to 55%, COPD/asthma, iron deficiency anemia, anxiety, obesity with BMI greater than 30. PAST SURGICAL HISTORY Right knee arthroscopy. HOME MEDICATIONS Include metformin 1000 mg b.i.d., Norvasc 10 mg daily, Toprol-XL 10 mg daily. When she was here in January and she was discharged, she was also on hydrochlorothiazide, Catapres, hydralazine which are not included on her particular med rec at this time. ALLERGIES No known allergies. SOCIAL HISTORY Unit #: [id number] #: [id number] Patient: CHANDA CRISTOBAL History of tobacco abuse, age 15 to 42, one pack per day, but quit approximately 5 years ago now. FAMILY HISTORY Mother in her 60s from cancer. Father had coronary artery disease and coronary artery bypass grafting in his 60s. Brothers and sisters have no known heart problems. REVIEW OF SYSTEMS No fevers. No chills. No hematuria. No melena. No bright red bleeding per rectum. Positive lower extremity edema. Positive arthralgias in her knees with mobility issues. PHYSICAL EXAMINATION GENERAL: Morbidly obese female, who is sitting in the chair, in no acute distress, complaining of being hungry. VITAL SIGNS: Temperature 98.6, pulse 82, respirations 22, blood pressure 176/81. On admission, blood pressure was 200/110; 5 feet 3 inches, 117.48 kg, BMI is 45. HEENT: Normocephalic and atraumatic. No xanthelasma. Pupils equal, round, reactive to light. Extraocular movements intact. No xanthelasma. NECK: Supple. No obvious jugular venous distention. No elevated CVP. No thyromegaly. No carotid bruits. LUNGS: Clear to auscultation anteriorly and posteriorly bilaterally all pal[place]. CARDIOVASCULAR: S1 and S2. No S3 or S4. Normal sinus rhythm. No murmurs, rubs, or gallops. No lift. ABDOMEN: Soft, nontender, nondistended. Morbidly obese. EXTREMITIES: Bilateral lower extremity edema, nonpitting, 2+ pulses bilaterally. NEUROLOGIC: Awake, alert, and oriented x3. Moving all extremities spontaneously with equal strength. No facial drooping. Speech clear and appropriate. No focal deficits. DIAGNOSTIC STUDIES LABORATORY RESULTS: Sodium 137, potassium 3.1 on admission, chloride 104, CO2 of 26, BUN 15, creatinine 0.7, glucose 135, total protein 7, albumin 3.2, AST 10, ALT 12, alkaline phosphatase 102. BNP 51. She had hemoglobin A1c done on her admission in January which was 10.5, also had a TSH done in January which was 2.17. Troponin is less than 0.03. She had serial troponins in January as well that were negative. Point of care troponin in the ER was less than 0.05. PT 10.5, INR 1.0, PTT 22.7. In January, she had an elevated D-dimer with a CTA that was negative for PE. Hemoglobin 10.0, hematocrit 31.9, white blood cell count 14.6, platelet count 475. Of note, her toxicology back in 2012 was positive for benzodiazepines, marijuana, and opioids. ASSESSMENT AND PLAN 1. Atypical chest pain. Recent echocardiogram done in January. At that time, a Lexiscan stress test was started, but the patient refused it. At this time, she says she is amenable. We will re-attempt a Lexiscan stress test. She has had 2 negative troponins. A 12-lead EKG is negative. Normal sinus rhythm. No ST elevation. No ST depression. No acute T-wave abnormality. 2. Uncontrolled hypertension, on calcium channel mae and beta mae. We will reinstitute hydralazine as well as hydrochlorothiazide, which she was on in January. She received IV labetalol in the emergency room. Add fasting lipid profile to blood in lab. Unit #: [id number] #: [id number] Patient: CHANDA CRISTOBAL 3. Leukocytosis without fever. Dictated by... Colt DenisePNohemy. BRIAN/lindsay TD: 04/08/2017 23:16 JOB #: [id number] CONSULTATION REPORT Page 1 of 1 X X CONSULTATION REPORT
--- NOTE | ~2017-04-07 | EKG ---
PATIENT: CHANDA CRISTOBAL UNIT #: [id number] Ventricular Rate: 96 BPM Atrial Rate: 96 BPM P-R Interval: 166 ms QRS Duration: 102 ms Q-T Interval: 368 ms QTC Calculation(Bezet): 464 ms P [place]: 57 degrees Calculated R [place]: 34 degrees Calculated T [place]: 63 degrees Diagnosis Line: Normal sinus rhythm Diagnosis Line: Normal ECG Diagnosis Line: When compared with ECG of 25-JAN-2017 11:11, Diagnosis Line: T wave inversion no longer evident in Inferior Diagnosis Line: leads Diagnosis Line: Nonspecific T wave abnormality now evident in Diagnosis Line: Lateral leads Diagnosis Line: Confirmed by DEE MANZANO MD ([id number]) on Diagnosis Line: 04/09/2017 8:13:09 PM INTERPRETING MD: BUZZ
--- NOTE | ~2017-04-07 | HP ---
Unit #: [id number] #: [id number] Patient: CHANDA CRISTOBAL [id number] [address] [place], [place] [address] [id number] MR#: [id number] NAME: CHANDA CRISTOBAL. ROOM: 565 Age: 47 Sex: F Admission Date: 04/07/2017 : 1970 Attending Physician: Myron Barone M.D. Primary Care Physician: Charity Miner M.D. HISTORY AND PHYSICAL ADMISSION DIAGNOSES 1. Intermittent chest pain. 2. Axillary hypertension. 3. Diabetes. 4. Morbid obesity. 5. Anemia of chronic disease. 6. Leukocytosis. HISTORY OF PRESENT ILLNESS Ms. Cristobal is a 47-year-old -[place] female well known to use secondary to a prior admission for similar episodes, except at that time it was not about intermittent chest pain. The patient comes in with the complaints of intermittent chest discomfort. She describes it as achy sensation in the chest, rates 7 out of 10. It is substernal and does not radiate to any other parts of the body. She has no alleviating or aggravating factors but there is no shortness of air, dyspnea, fever, chills, diaphoresis. There is no syncope, presyncope, or episodes of lightheadedness so no fever. No cough. REVIEW OF SYSTEMS Twelve point review of systems on this patient is basically negative, except as above. PAST MEDICAL HISTORY Significant history of hypertension, diabetes, and morbid obesity. PAST SURGICAL HISTORY None. HOME MEDICATIONS She was taking metformin, Norvasc, and Toprol XL at home. ALLERGIES No known drug allergies. SOCIAL HISTORY No history of tobacco, alcohol or illicit drugs. FAMILY HISTORY Unremarkable. PHYSICAL EXAMINATION GENERAL APPEARANCE: She is again an obese 47-year-old, -[place] female, otherwise not in acute distress. Unit #: [id number] #: [id number] Patient: CHANDA CRISTOBAL VITAL SIGNS: BP 188/107, heart rate 70, respirations 18, temperature 97.6. HEENT: Head is atraumatic. Pupils equal, round, and reactive to light. Extraocular muscles intact. Oropharynx clear. NECK: Supple. No mass. No JVD. No bruits. CHEST: Diminished bilaterally. CARDIOVASCULAR: S1 and S2. No murmurs. ABDOMEN: Soft, nontender, and nondistended. Obese. LOWER EXTREMITIES: Some trace edema. NEUROLOGIC: Patient is gross intact. No focal deficits. DIAGNOSTIC STUDIES IMAGING STUDIES: Chest x-ray negative. LABORATORY STUDIES: Chemistry is significant for blood glucose of 190. PT, INR, PTT 10.5, 1.0, and 27.5. White count 12.3, H and H 10.4 and 33.1. ASSESSMENT AND PLAN 1. Intermittent chest pain, status post negative cardiac enzymes. Cardiology to follow. Patient is scheduled for stress test. May need to go to cardiac cath as well, so holding the metformin. 2. Accelerated hypertension. Continue p.r.n. hydralazine. 3. Continue beta-mae and Norvasc. Consider Clonidine. 4. Diabetes. Continue with sliding scale. 5. Morbid obesity. Currently no plans of losing some weight. 6. Anemia of chronic disease. Monitor closely. 7. Leukocytosis. Will check UA and urine culture, also procalcitonin level. 8. GI and DVT prophylaxis. Some PPI and she is on treatment dose of Lovenox per cardiology. Dictated by Henri Ramirez/aretha TD: 04/08/2017 18:45 JOB #: [id number] HISTORY AND PHYSICAL Page 1 of 1 X Myron Barone MD X HISTORY AND PHYSICAL
--- NOTE | ~2017-04-07 | DS ---
Unit #: [id number] #: [id number] Patient: CHANDA CRISTOBAL [id number] [address] [address] [id number] I MR#: [id number] NAME: CHANDA CRISTOBAL. ROOM: 565 Age: 47 Sex: F Admission Date: 04/07/2017 : 1970 Discharge Date: 04/10/2017 Attending Physician: Myron Barone M.D. Primary Care Physician: Charity Miner M.D. DISCHARGE SUMMARY FINAL DIAGNOSES 1. Chest pain, acute myocardial infarction has been ruled out. 2. Status post cardiac cath. Preliminary findings are normal coronaries with left ventricular ejection fraction of 65%. Left ventricular end-diastolic pressure is 16 to 18. 3. Hypertension which was accelerated, is much improved. 4. Morbid obesity. 5. Anemia of chronic disease. 6. Leukocytosis, which is improved. DISCHARGE MEDICATIONS Percocet 5/325 one tablet q.12 p.r.n., dispense 10; Protonix 40 mg daily; aspirin 81 mg daily; lisinopril 40 mg daily; hydralazine 50 mg q.8; chlorthalidone 25 mg daily; metoprolol 100 mg daily; amlodipine 10 mg daily; metformin 1000 mg b.i.d. Discontinued medications are hydrochlorothiazide 25 mg a day. CONSULTATION DURING HOSPITALIZATION [facility]. HOSPITAL COURSE Ms. Chanda Cristobal is a 47-year-old , morbidly obese female, was admitted with intermittent chest pain. Acute myocardial infarction was ruled out. Because of the patient's intermittent chest pain cardiac cath was done, which shows normal coronaries. The patient did complain of severe back pain and severe leg pain. Did receive some pain medication which will be giving for p.r.n. basis. The patient is doing much better. Her blood pressure has improved. We have changed her antihypertensive medications that needs to be observed. The patient is being discharged home on above medication. PHYSICAL EXAMINATION ON DISCHARGE VITAL SIGNS: Blood pressure 137/73, respiratory rate 18, pulse is 83, temperature 97.7, oxygen saturation is 97%. HEENT: Head is normocephalic. CHEST: Fair air entry. No additional sounds. CVS: S1, S2 positive. Regular rhythm. EXTREMITIES: Negative edema. DISCHARGE INSTRUCTIONS 1. The patient is being discharged home in stable condition. 2. Follow up primary care provider in 1 week. Unit #: [id number] #: [id number] Patient: CHANDA CRISTOBAL 3. CBC and BMP to be repeated in 1 week. 4. Prescriptions for antihypertensive has been written. Dictated by... Henri Betancourt/lindsay TD: 04/12/2017 03:20 JOB #: [id number] DISCHARGE SUMMARY Page 1 of 1 X Charity Miner MD X DISCHARGE SUMMARY
--- NOTE | ~2017-04-07 | EKG ---
PATIENT: CHANDA CRISTOBAL UNIT #: [id number] Ventricular Rate: 75 BPM Atrial Rate: 75 BPM P-R Interval: 160 ms QRS Duration: 98 ms Q-T Interval: 380 ms QTC Calculation(Bezet): 424 ms P [place]: 47 degrees Calculated R [place]: 23 degrees Calculated T [place]: -21 degrees Diagnosis Line: Normal sinus rhythm Diagnosis Line: Nonspecific T wave abnormality Diagnosis Line: Abnormal ECG Diagnosis Line: When compared with ECG of 07-APR-2017 19:39, Diagnosis Line: (unconfirmed) Diagnosis Line: T wave inversion now evident in Inferior leads Diagnosis Line: Nonspecific T wave abnormality, worse in Lateral Diagnosis Line: leads Diagnosis Line: Confirmed by DEE MANZANO MD ([id number]) on Diagnosis Line: 04/09/2017 8:23:50 PM INTERPRETING MD: BUZZ
--- NOTE | ~2017-04-07 | CR72 ---
[facility] A Service of [facility] & [facility] RADIOLOGY TEXT RESULTS PATIENT: CHANDA CRISTOBAL LOCATION: [facility] 565-01 : [birth year] UNIT #: [id number] AGE: [address]: Myron Barone MD SEX: F ORDER DR: [id number] [facility] [address] [place], [place] [address] [id number] I MR#: [id number] Acc #: [id number] NAME: CHANDA CRISTOBAL. : 1970 SEX: F STUDY DATE/TIME: 04/07/2017 20:34 UNIT: [facility] ROOM: [facility] STUDY DESCRIPTION: CR Chest Single View Portable Attending Physician: Myron Barone M.D. Ordering Physician: Calderon Maxwell M.D. Primary Care Physician: Charity Miner M.D. MEDICAL IMAGING REPORT This report is preliminary unless electronic signature is present EXAM Portable chest HISTORY Chest pain onset today. COMPARISON 01/25/2017 FINDINGS A single AP portable view of the chest shows both lungs to be clear. The heart is normal in size. The mediastinal contour is normal. No significant bone abnormalities are seen. IMPRESSION Normal portable chest. Dictated by... Sloane Gomez M.D. THIS IS AN ELECTRONICALLY VERIFIED REPORT Sloane Gomez M.D. at 04/08/2017 1:04 PM LUI/lidai TD: 04/08/2017 09:47 JOB #: [id number] MEDICAL IMAGING REPORT Page 1 of 1 COPY
[~2017-04-07 19:25] MED LIST changes: +LIPITOR PO; +PRINIVIL5 MG PO
[2017-04-07] MEDS ORDERED: NORVASC PO (20:58)
[2017-04-07] MEDS ORDERED: METFORMIN HCL1000 M1 PO (20:58)
[2017-04-07] MEDS ORDERED: TOPROL XL PO (20:58)
[2017-04-07 21:57] LABS: POC - CKMB <1.0 ng/mL (0.0-7.9); POC - TROPONIN <0.05 ng/mL (<=0.05)
[2017-04-07 22:09] LABS: BASOPHIL# 0.1 X10e3 (0-0.3); BASOPHIL% 0.7 % (0-2.5); EOSINOPHIL% 6.7 % (0.0-7.0); HEMATOCRIT 31.9 % (35.0-45.0); LYMPHOCYTE# 5.5 X10e3 (1.0-3.5); LYMPHOCYTE% 37.9 % (17.0-45.0); MEAN CORPUSCULAR HEMOGLOBIN 25.4 PG (28-34); MEAN CORPUSCULAR HGB CONC 31.4 g/dL (30-36); MEAN PLATELET VOLUME 7.9 FL (6.5-11.5); MONOCYTE# 0.9 X10e3 (0-1.0); MONOCYTE% 5.9 % (3.0-12.0); NEUTROPHIL# 7.1 X10e3 (1.5-7.1); NEUTROPHIL% 48.8 % (40-75); PLATELET COUNT 475 X10e3 (140-420); RED BLOOD COUNT 3.94 X10e (3.90-5.30); RED CELL DISTRIBUTION WIDTH 15.6 % (11.0-15.5); WHITE BLOOD COUNT 14.6 X10e3 (4.0-10.5)
[2017-04-07 22:15] LABS: DIFF IND NO
[2017-04-07 22:25] LABS: PARTIAL THROMBOPLASTIN TIME 27.5 SECONDS (23.5-31.3); PROTHROMBIN TIME (PATIENT) 10.5 SECONDS (10.0-11.7)
[2017-04-07 22:33] LABS: ALBUMIN SERUM 3.2 g/dL (3.5-5.0); ALKALINE PHOSPHATASE 102 U/L (32-92); ALT (SGPT) 12 U/L (10-40); AST (SGOT) 10 U/L (10-42); BILIRUBIN,TOTAL 0.7 mg/dL (0.2-2.0); BLOOD UREA NITROGEN 15 mg/dL (9-23); BUN/CREATININE RATIO 21.42; CALCIUM SERUM 8.8 mg/dL (8.4-10.2); CARBON DIOXIDE 26 mmol/L (22-31); CHLORIDE 104 mmol/L (100-111); CREATININE SERUM 0.7 mg/dL (0.6-1.4); GLOM FILT RATE Estimated 119.6 mL/min (>60); GLUCOSE FASTING 135 mg/dL (70-110); POTASSIUM 3.1 mmol/L (3.5-5.1); SODIUM 137 mmol/L (135-145)
[2017-04-07 22:39] LABS: BILIRUBIN, DIRECT <0.1 mg/dL (0.0-0.2); BILIRUBIN,INDIRECT 0.6 mg/dL (0.0-0.9)
[2017-04-08 06:48] LABS: CK TOTAL 48 IU/L (26-140)
[2017-04-08] MEDS ORDERED: HYDRALAZINE HCL50 MG PO (09:04)
[2017-04-08] MEDS ORDERED: HYDROCHLOROTHIA25 MG PO (09:05)
[2017-04-08 10:16] LABS: CK TOTAL 50 IU/L (26-140)
[2017-04-08 10:29] LABS: BASOPHIL# 0.1 X10e3 (0-0.3); BASOPHIL% 0.8 % (0-2.5); EOSINOPHIL# 0.7 X10e3 (0-0.7); HEMATOCRIT 33.1 % (35.0-45.0); HEMOGLOBIN 10.4 gm/dL (12.0-16.0); LYMPHOCYTE# 3.6 X10e3 (1.0-3.5); LYMPHOCYTE% 29.3 % (17.0-45.0); MEAN CELL VOLUME 82.2 FL (83-96); MEAN CORPUSCULAR HEMOGLOBIN 25.8 PG (28-34); MEAN CORPUSCULAR HGB CONC 31.4 g/dL (30-36); MONOCYTE# 0.8 X10e3 (0-1.0); MONOCYTE% 6.7 % (3.0-12.0); NEUTROPHIL# 7.1 X10e3 (1.5-7.1); NEUTROPHIL% 57.2 % (40-75); PLATELET COUNT 462 X10e3 (140-420); RED BLOOD COUNT 4.03 X10e (3.90-5.30); RED CELL DISTRIBUTION WIDTH 15.4 % (11.0-15.5); WHITE BLOOD COUNT 12.3 X10e3 (4.0-10.5)
[2017-04-08 10:31] LABS: DIFF IND NO
[2017-04-08 10:40] LABS: BUN/CREATININE RATIO 18.33; CALCIUM SERUM 8.8 mg/dL (8.4-10.2); CREATININE SERUM 0.6 mg/dL (0.6-1.4); GLOM FILT RATE Estimated 125.8 mL/min (>60); POTASSIUM 3.5 mmol/L (3.5-5.1)
[2017-04-08 11:02] LABS: CHOLESTEROL 158 mg/dL (0-200); HDL CHOLESTEROL 32 mg/dL (35-95); LDL CHOLESTEROL 104 mg/dL (-130); LDL/HDL RATIO 3 RATIO (0-4); TRIGLYCERIDES 109 mg/dL (10-160)
[2017-04-08 15:58] LABS: CK TOTAL 59 IU/L (26-140)
[2017-04-09 05:38] LABS: HEMOGLOBIN 10.2 gm/dL (12.0-16.0); MEAN CELL VOLUME 81.8 FL (83-96); MEAN CORPUSCULAR HEMOGLOBIN 25.4 PG (28-34); MEAN CORPUSCULAR HGB CONC 31.1 g/dL (30-36); MEAN PLATELET VOLUME 7.9 FL (6.5-11.5); RED BLOOD COUNT 4.03 X10e (3.90-5.30); RED CELL DISTRIBUTION WIDTH 15.6 % (11.0-15.5); WHITE BLOOD COUNT 12.2 X10e3 (4.0-10.5)
[2017-04-09 06:15] LABS: CALCIUM SERUM 9.1 mg/dL (8.4-10.2); CREATININE SERUM 0.5 mg/dL (0.6-1.4); GLOM FILT RATE Estimated 133.6 mL/min (>60)
[2017-04-09 06:33] LABS: URINE APPEARANCE CLEAR; URINE BILIRUBIN NEG (NEG); URINE BLOOD NEG (NEG); URINE COLOR YELLOW; URINE GLUCOSE 500 MG/DL (NEG); URINE KETONE NEG (NEG); URINE LEUKOCYTE ESTERASE NEG (NEG); URINE NITRATE NEG (NEG); URINE PROTEIN NEG (NEG); URINE SPECIFIC GRAVITY 1.015 (1.003-1.035)
[2017-04-09 06:47] LABS: AMPHETAMINE NEG (NEG); BARBITURATES NEG (NEG); BENZODIAZEPINES NEG (NEG); COCAINE NEG (NEG); MARIJUANA NEG (NEG); OPIATES POS (NEG); TRICYCLIC ANTIDEPRESSANTS NEG (NEG); U METHADONE NEG (NEG)
[2017-04-10] MEDS ORDERED: CHLORTHALIDONE25 MG PO (13:55)
[2017-04-10] MEDS ORDERED: PRINIVIL40 MG PO (13:56)
[2017-04-10] MEDS ORDERED: ASPIRIN81 MG PO (13:57)
[2017-04-10] MEDS ORDERED: PERCOCET 5/321 UDTAB PO (13:59)
[2017-04-10] MEDS ORDERED: PANTOPRAZOLE SO40 MG PO (13:59)
== END 2017-04-10 14:26 | disposition home or self-care (01) | DRG 287 ==
LOC: CED 19:25 → CEDOF 23:31 → C5C 23:31 → CEDOF 23:53 → CED 23:53 → CEDOF 04-08 08:05 → C5C 04-08 08:05
PROVIDERS: Emergency Medicine; Hospitalist; Internal Medicine Cardiovascular Disease
PROC: 4A023N7 Measurement of Cardiac Sampling and Pressure, Left Heart, Percutaneous Approach (ICD-10-PCS; principal; 2017-04-09)
PROC: B215YZZ Fluoroscopy of Left Heart using Other Contrast (ICD-10-PCS; 2017-04-09)
PROC: B211YZZ Fluoroscopy of Multiple Coronary Arteries using Other Contrast (ICD-10-PCS; 2017-04-09)
DX: R07.9 Chest pain, unspecified (principal); I10 Essential (primary) hypertension; Z68.42 Body mass index [BMI] 45.0-49.9, adult; E11.9 Type 2 diabetes mellitus without complications; J44.9 Chronic obstructive pulmonary disease, unspecified; D50.9 Iron deficiency anemia, unspecified; E66.01 Morbid (severe) obesity due to excess calories; D63.8 Anemia in other chronic diseases classified elsewhere; D72.829 Elevated white blood cell count, unspecified; F41.9 Anxiety disorder, unspecified; E78.5 Hyperlipidemia, unspecified
CPT/HCPCS: 36415; 71010; 80048; 80061; 80076; 80307; 81003; 82308; 82550; 82553; 82947; 83880; 84484; 85025; 85027; 85610; 85730; 93005; 99285; C1769; C1887; C1894; J0360; J1170; J1644; J1650; J1815; J2250; J2270; J2405; J3010